=== PATIENT | male | born 1950 | race Asian ===

== ENCOUNTER 2017-08-17 07:43 | Emergency (ER) | payer OTHER ==
[~2017-08-17] VITALS: Ht 167.6 cm; Wt 74.0 kg
[2017-08-17 08:33] LABS: BASOPHIL % 0.4 % (0-2); PLATELET COUNT 242 x10^3mcL (130-400); RED CELL DISTRIBUTION WIDTH 12.4 % (11.5-14.5)
[2017-08-17 08:57] LABS: CARBON DIOXIDE 29.4 mmol/L (21-32); CHLORIDE SERUM 100 mmol/L (98-107); CREATININE SERUM 1.1 mg/dL (0.7-1.3); GFR1 > 60 mL/min; GLUCOSE SERUM 132 mg/dL (74-106); POTASSIUM SERUM 3.9 mmol/L (3.5-5.1); SODIUM SERUM 136 mmol/L (136-145)
[2017-08-17 08:58] LABS: ALBUMIN 3.9 g/dL (3.4-5.0)
[2017-08-17 09:06] LABS: TOTAL PROTEIN, SERUM 8.2 g/dL (6.4-8.2); URIC ACID 5.5 mg/dL (3.5-7.2)
[2017-08-17 09:07] LABS: ALKALINE PHOSPHATASE 56 U/L (46-116); ALT/SGPT 27 U/L (16-63); AST/SGOT 21 U/L (15-37); BILIRUBIN TOTAL 1.23 mg/dL (0.20-1.00)
[2017-08-17 10:39] LABS: ERYTHROCYTE SED RATE 9 mm/hr (0-20)
[2017-08-17 11:58] LABS: APPEARANCE FLUID BLOODY; COLOR FLUID RED; SITE FLUID RIGHT ANKLE; SOURCE FLUID SYNOVIAL FLUID
[2017-08-17 11:59] LABS: LYMPHOCYTE FLUID 12 %; MONOCYTE FLUID 6 %; RBC FLUID 25680 /cumm; WBC FLUID 11360 /cumm
[2017-08-17 13:02] VITALS: BP 132/68
== END 2017-08-17 12:50 | disposition home or self-care (01) ==
LOC: ED 07:43
PROVIDERS: Emergency Medicine
DX: M25.471 Effusion, right ankle (principal); I10 Essential (primary) hypertension; E78.5 Hyperlipidemia, unspecified
CPT/HCPCS: 36415; J1885; J2001; Q0092